=== PATIENT | female | born 1990 | race Hispanic/Latino ===

== ENCOUNTER 2021-03-14 12:49 | Emergency (ER) | payer BC, OTHER ==
[~2021-03-14] VITALS: Ht 154.9 cm; Wt 70.8 kg
[2021-03-14 17:16] VITALS: BP 127/84
[2021-03-14] MEDS ORDERED: PROMETHAZINE HCL 25 MG/ML 1ML AMPULE IM ONE (18:00)
[2021-03-14] MEDS ORDERED: 0.9%NACL 1000ML 1,000 ML IV ONE (18:00)
[2021-03-14 18:21] LABS: BASOPHILS % (AUTO) 0.7 % (0.0-5.0); EOSINOPHILS % (AUTO) 0.1 % (0.0-8.0); HEMATOCRIT 38.2 % (36-48); LYMPHOCYTES % (AUTO) 19.4 % (21.0-51.0); MEAN CORPUSCULAR HEMOGLOBIN 28.6 pg (27.0-33.0); MEAN CORPUSCULAR VOLUME 86.8 fL (79-99); MONOCYTES % (AUTO) 6.2 % (3.0-13.0); NEUTROPHILS % (AUTO) 73.2 % (40.0-77.0); PLATELET COUNT (AUTO) 328 K/uL (130-400); RED CELL DISTRIBUTION WIDTH 13.1 % (11.0-15.5); WHITE BLOOD COUNT (AUTO) 10.4 K/uL (4.8-10.8)
[2021-03-14 18:40] LABS: CREATININE 0.7 mg/dL (0.5-1.5); POTASSIUM 3.7 mmol/L (3.5-5.1)
[2021-03-14 18:43] VITALS: BP 111/65
[2021-03-14 18:44] VITALS: BP_SYST 107; BP_SYST 114; BP_DIAS 65; BP_DIAS 66
[2021-03-14 19:06] LABS: ALBUMIN 4.3 g/dL (3.5-5.0); BILIRUBIN,TOTAL 0.5 mg/dL (0.2-1.0); TOTAL PROTEIN, SERUM 8.5 g/dL (6.0-8.3)
[2021-03-14 19:20] LABS: APPEARANCE,URINE Clear (CLEAR); BILIRUBIN,URINE Negative (NEGATIVE); COLOR,URINE Yellow (YELLOW); GLUCOSE, URINE (UA) Negative (NEGATIVE); KETONES,URINE 15 mg/dL (NEGATIVE); LEUKOCYTE ESTERASE ,URINE Trace (NEGATIVE); NITRATE,URINE Negative (NEGATIVE); OCCULT BLOOD,URINE Negative (NEGATIVE); PH,URINE 6.5 (5.0-8.0); PROTEIN,URINE Negative (NEGATIVE); UROBILINOGEN,URINE 0.2 mg/dL (0.2-1.0)
[2021-03-14 19:41] LABS: BACTERIA,URINE Rare /HPF (None Seen); RBC,URINE None Seen /HPF (0-1); SQUAMOUS EPITHELIAL CELL,UR 0-2 /HPF (0-2)
[2021-03-14 20:29] VITALS: BP 109/67
[2021-03-14] MEDS ORDERED: CEFTRIAXONE 1G VIAL IVP SCH (20:30)
[2021-03-14] MEDS ORDERED: CEPH500B PO (20:47)
[2021-03-14] MEDS ORDERED: PHEN12S PR (20:47)
== END 2021-03-14 21:17 | disposition home or self-care (01) ==
LOC: EDH 12:49
DX: O23.41 Unspecified infection of urinary tract in pregnancy, first trimester (principal); O21.0 Mild hyperemesis gravidarum; Z88.0 Allergy status to penicillin; Z91.040 Latex allergy status; Z98.890 Other specified postprocedural states; Z3A.08 8 weeks gestation of pregnancy
CPT/HCPCS: 36415; 80053; 81001; 84702; 85025; 96361; 96372; 96374; 99284; J0696; J2550

== ENCOUNTER 2021-04-06 15:28 | Emergency (ER) | payer BC ==
[~2021-04-06] VITALS: Ht 157.5 cm; Wt 68.9 kg
[~2021-04-06 15:28] MED LIST: CEPH500B PO; PHEN12S PR
[2021-04-06 16:33] VITALS: BP 121/74
[2021-04-06 17:02] LABS: BASOPHILS % (AUTO) 0.4 % (0.0-5.0); EOSINOPHILS % (AUTO) 0.2 % (0.0-8.0); HEMATOCRIT 34.3 % (36-48); LYMPHOCYTES % (AUTO) 20.7 % (21.0-51.0); MEAN CORPUSCULAR HEMOGLOBIN 28.6 pg (27.0-33.0); MEAN CORPUSCULAR HGB CONC 34.1 g/dL (32.0-36.0); MEAN CORPUSCULAR VOLUME 83.9 fL (79-99); MONOCYTES % (AUTO) 6.8 % (3.0-13.0); NEUTROPHILS % (AUTO) 71.5 % (40.0-77.0); PLATELET COUNT (AUTO) 299 K/uL (130-400); RED BLOOD CELL COUNT(AUTO) 4.09 MIL/uL (4.00-5.50); RED CELL DISTRIBUTION WIDTH 13.2 % (11.0-15.5); WHITE BLOOD COUNT (AUTO) 9.5 K/uL (4.8-10.8)
[2021-04-06 18:21] LABS: APPEARANCE,URINE Clear (CLEAR); BILIRUBIN,URINE Negative (NEGATIVE); COLOR,URINE Yellow (YELLOW); GLUCOSE, URINE (UA) Negative (NEGATIVE); KETONES,URINE Trace mg/dL (NEGATIVE); LEUKOCYTE ESTERASE ,URINE Trace (NEGATIVE); NITRATE,URINE Negative (NEGATIVE); OCCULT BLOOD,URINE Negative (NEGATIVE); PH,URINE 6.5 (5.0-8.0); PROTEIN,URINE Negative (NEGATIVE)
[2021-04-06 18:30] LABS: BACTERIA,URINE Few /HPF (None Seen); RBC,URINE 0-1 /HPF (0-1)
[2021-04-06 18:31] LABS: MUCUS,URINE Rare LPF (None Seen); SQUAMOUS EPITHELIAL CELL,UR Few /HPF (0-2)
[2021-04-06 18:37] VITALS: BP 103/68
== END 2021-04-06 19:44 | disposition home or self-care (01) ==
LOC: EDH 15:28
DX: O20.0 Threatened abortion (principal); O20.8 Other hemorrhage in early pregnancy; Z88.0 Allergy status to penicillin; Z79.899 Other long term (current) drug therapy; Z3A.11 11 weeks gestation of pregnancy
CPT/HCPCS: 36415; 76801; 81001; 84702; 85025; 86900; 86901

== ENCOUNTER 2023-02-12 21:19 | Emergency (ER) | payer BC ==
[~2023-02-12] VITALS: Ht 154.9 cm; Wt 68.0 kg
[2023-02-12 21:24] VITALS: BP 135/81
[2023-02-12] MEDS ORDERED: ONDANSETRON ODT 4MG TAB SL ONE (22:00)
[2023-02-12] MEDS ORDERED: ACETAMINOPHEN 500 MG TABLET PO ONE (22:00)
[2023-02-12 22:06] LABS: APPEARANCE,URINE TURBID (CLEAR); BILIRUBIN,URINE NEGATIVE (NEGATIVE); COLOR,URINE YELLOW (YELLOW); GLUCOSE, URINE (UA) NEGATIVE (NEGATIVE); KETONES,URINE 100 mg/dL (NEGATIVE); LEUKOCYTE ESTERASE ,URINE 500 Leu/uL (NEGATIVE); NITRATE,URINE 2+ (NEGATIVE); OCCULT BLOOD,URINE SMALL (NEGATIVE); PH,URINE 6.5 (5.0-8.0); PROTEIN,URINE 100 mg/dL (NEGATIVE); UROBILINOGEN,URINE 0.2 mg/dL (0.2-1.0)
[2023-02-12 22:09] LABS: HCG,QUALITATIVE URINE NEGATIVE (NEGATIVE)
[2023-02-12 22:11] LABS: BACTERIA,URINE RARE /HPF (None Seen); MUCUS,URINE RARE LPF (None Seen); SQUAMOUS EPITHELIAL CELL,UR MOD /HPF (0-2); WBC,URINE 51-100 /HPF (0-1); YEAST,URINE BUDDING FEW /HPF (None Seen)
[2023-02-12] MEDS ORDERED: SULF1TAB42 PO (22:13)
== END 2023-02-12 22:41 | disposition home or self-care (01) ==
LOC: EDH 21:19
DX: N39.0 Urinary tract infection, site not specified (principal); Z88.0 Allergy status to penicillin; Z88.1 Allergy status to other antibiotic agents; Z20.822 Contact with and (suspected) exposure to COVID-19
CPT/HCPCS: 99283; 87635; 87077; 87088; 87186; 87804 ×2; 81001; 81025; C9803

== ENCOUNTER 2024-10-10 00:32 | Emergency (ER) | payer BC ==
[~2024-10-10] VITALS: Ht 154.9 cm; Wt 77.6 kg
[~2024-10-10 00:32] MED LIST changes: +SULF1TAB42 PO
--- NOTE | 2024-10-10 01:35 | ERN ---
ED Note History of Present Illness Stated Complaint: C/O PAIN TO LEFT HIP AND BACK AFTER FALL IN SHOWER Chief Complaint: Mechanical Fall Time Seen by MD: 00:34 Time Seen by Midlevel: 00:34 Dictation: The patient is a 33-year-old female with a history of cholecystectomy who presents to the emergency department with lower back pain more on the left side after a slip and fall while in the shower around 12:00 p.m. on 10/08/2024. Patient denies any head trauma. Denies any neck pain upper back pain chest pain or abdominal pain, extremity pain. Denies any urinary or fecal incontinence. Denies any nausea or vomiting, denies any use of blood thinners. Allergies: Coded Allergies: Penicillins (Unverified Allergy, Unknown, 03/14/21) clindamycin (Unverified Allergy, Unknown, 02/12/23) latex (Unverified Allergy, Unknown, 03/14/21) Home Meds Active Scripts Sulfamethoxazole/Trimethoprim (Bactrim Ds Tablet) 1 Each Tablet, 1 TAB PO BID for 7 Days, #14 TAB 0 Refills Prov:VIKKI FOSTER NP 02/12/23 Cephalexin Monohydrate (Keflex) 500 Mg Cap, 500 MG PO TID, #21 CAP Prov:SHARMAINE BADILLO 03/14/21 Promethazine HCl (Phenergan Supp) 12.5 Mg Supp, 25 MG DE QID, #20 SUPP Prov:SHARMAINE BADILLO 03/14/21 Past Medical History Past Medical History: No Pertinent History Additional Past Medical Hx: PCOS, BREAST CYST Surgical History: Cholecystectomy Surgical History Other: BREAST CYST Family History: Negative Social History: Negative, Lives with family LMP: Sep 18, 2024 : 2 Para: 0 Aborts: 1 RN Note Reviewed/Agreed w/PFSH: Yes Review of System Dictation Constitutional: Negative for fever,chills, and weight loss Eyes: Negative for injury, pain,redness, and discharge ENT: Negative for injury,pain or swelling Cardiovascular: Negative for chest pain, palpitations, and edema Respiratory: Negative for shortness of breath, cough, and wheezing, Abdomen/GI: Negative for abdominal pain, nausea, vomiting, diarrhea, and constipation Back: positive for low back pain : Negative for injury, bleeding and discharge MS/Extremity: Negative for injury and deformity Skin: Negative for rash, and discoloration Neuro: Negative for headache, weakness, numbness, tingling, and seizure Psych: Negative for suicide ideation, homicidal ideation, and hallucinations Initial Vital Sign VS Vital Signs Date Time Temp Pulse Resp B/P (MAP) Pulse Ox O2 Delivery O2 Flow Rate FiO2 10/10/24 00:33 99.3 95 20 124/81 98 Room Air 10/10/24 03:14 0 21 Physical Exam Dictation Vital Signs reviewed General Appearance: Alert, oriented x 3, no acute distress, well developed, nourished. Head and Face: non-traumatic. Eyes: PERRL, pink conjunctivas, eyelid no trauma, anterior chamber with arcus senilis. Ears: Pinnas intact and no signs of trauma or erythema ear canals clear and no discharge TM no erythema Nose: No discharge, no bleeding. Oropharynx: Mouth normal, tongue pink. pharynx clear,no erythema, tonsils no exudates, no abscesses noted, mucous membrane moist Neck: Supple, non-tender, no thyromegaly, no masses, no JVD, no bruits Breast:Deferred Chest:No tenderness, no crepitus, no paradoxical movement, no retractions Lungs:Clear, well-ventilated, symmetric, no rales, no wheezing, no rhonchi, no stridor, good breath sounds bilaterally Heart: Regular rate, regular rhythm, no murmur, no gallops Vascular: no peripheral edema dorsalis pedis 2+, cap refill to lower extremities less than 2 seconds Abdomen: Soft, positive bowel sounds, nondistended, no guarding, nontender, no rebound, no masses no hepatomegaly, no splenomegaly, no Mares's sign, no hernias. Rectal: Deferred Genital: Deferred Neurological: Normal speech, motor function intact, sensory function intact Musculoskeletal: Neck nontender, full range of motion, back nontender, full range of motion, Extremities: nontender, full range of motion , ambulatory Skin: Color pink, dry, no turgor, no rash, no lacerations, no abrasions, no contusions. Lymphatic: Deferred Results (Laboratory/Radiology) Laboratory/Radiology Laboratory Tests Test 10/10/24 02:39 Urine HCG, Qualitative NEGATIVE (NEGATIVE) Labs Reviewed?: Yes ED Course ED Course Orders Procedure Category Date Status Time ,Urine Test LAB 10/10/24 Complete 00:50 Lumbar Spine 2-3vws RAD 10/10/24 Taken 00:51 Orphenadrine Citrate PHA 10/10/24 Complete (Norflex) 01:00 Ketorolac 60mg/2ml PHA 10/10/24 Complete (Toradol 60mg/2ml) 01:00 Current Medications Medications (Trade) Dose Ordered Sig/Austen Route PRN Reason Start Time Stop Time Status Last Admin Dose Admin Ketorolac Tromethamine (toRADol 60MG/ 2ML) 60 mg ONCE ONCE IM 10/10/24 01:00 10/10/24 01:01 DC 10/10/24 02:53 Orphenadrine Citrate (Norflex) 60 mg ONCE ONCE IM 10/10/24 01:00 10/10/24 01:01 DC 10/10/24 02:53 Vital Signs Date Time Temp Pulse Resp B/P (MAP) Pulse Ox O2 Delivery O2 Flow Rate FiO2 10/10/24 03:14 98.1 82 16 118/78 99 Room Air* 0 21 10/10/24 00:33 99.3 95 20 124/81 98 Room Air Medical Decision Making MDM The patient is a 33-year-old female with a history of cholecystectomy who presents to the emergency department with lower back pain more on the left side after a slip and fall while in the shower around 12:00 p.m. on 10/08/2024. Patient denies any head trauma. Denies any neck pain upper back pain chest pain or abdominal pain, extremity pain. Denies any urinary or fecal incontinence. Denies any nausea or vomiting, denies any use of blood thinners. Xray showed no fractures. Patient in no acute distress, ambulatory, nontoxic appearance. Instructed to follow up with PCP. Differential diagnosis: Lumbar fracture, back contusion, back strain Need for hospitalization: Patient does not meet criteria for hospitalization. There are no social concerns with this patient. DX & DISP Disposition: Discharge Departure Impression: Primary Impression: Low back strain Additional Impression: Fall Condition: Stable Scripts Cyclobenzaprine HCl (Flexeril) 10 Mg Tab 10 MG PO TID for muscle sstiffness, #14 TAB 0 Refills Prov: TI SUE CIVIL ENGINEERING MANAGER 10/10/24 Ibuprofen (Ibuprofen) 600 Mg Tablet 600 MG PO Q6H PRN for PAIN, #10 TAB Prov: SUETI WEN 10/10/24 Additional Instructions: FOLLOW-UP WITH PRIMARY CARE PROVIDER IN 1 TO 2 DAYS. TAKE MEDICATIONS DIRECTED HERE IN THE EMERGENCY ROOM. OKAY TO CONTINUE HOME MEDICATIONS UNLESS OTHERWISE DISCUSSED DURING YOUR VISIT IN THE EMERGENCY ROOM TODAY. RETURN TO YOUR NEAREST EMERGENCY ROOM IF SYMPTOMS WORSEN OR IF THERE IS NO IMPROVEMENT. CALL 911 IF YOU NEED IMMEDIATE ASSISTANCE. TAKE TYLENOL OR MOTRIN [id number] NEEDED AND IF NO CONTRAINDICATIONS ARE PRESENT. INCREASE ORAL HYDRATION. A WOUND CULTURE OR URINE CULTURE WAS ORDERED HERE IN THE EMERGE [facility] ROOM DEPARTMENT PLEASE FOLLOW-UP WITH PRIMARY CARE PROVIDER AND ADVISE THEM TO GET REPEAT PORTS FROM OUR FACILITY. IF YOU HAD ANY DELANO WRAP/SPLINTS THAT WERE APPLIED HERE, PLEASE DO NOT REMOVE THEM UNTIL YOU SEE YOUR PRIMARY CARE OR SPECIALTY. Referrals: MITZI DEJESUS DO (PCP) Time of Disposition: 03:39 I have reviewed the case, and I agree with, Diagnosis and Plan SUE,TI WEN Oct 10, 2024 01:34
[2024-10-10] MEDS: ketOROlac 60 MG VIAL (30MG/ML) IM ONE (02:53)
[2024-10-10] MEDS: ORPHENADRINE 60MG/2ML IM ONE (02:53)
[2024-10-10] MEDS ORDERED: IBUP-2070 PO (03:41)
[2024-10-10] MEDS ORDERED: CYCL10TA16 PO (03:41)
[2024-10-10 04:29] VITALS: BP 122/72; PULSE 76; RESP 16; TEMP 98.1; O2SAT 99
--- NOTE | 2024-10-10 08:51 | HMCIMG ---
EXAM: LUMBAR SPINE 2-3VWS REASON: fall, pain. COMPARISON: None. TECHNIQUE: 3 views of the lumbar spine were obtained. FINDINGS: There is normal appearance of the lumbar vertebral bodies. Disc interspace heights are preserved. Alignment is normal. There are no visible fractures. Soft tissues appear unremarkable. IMPRESSION: 1. Normal lumbar spine.
== END 2024-10-10 04:31 | disposition home or self-care (01) ==
LOC: EDH 00:32
DX: S39.012A Strain of muscle, fascia and tendon of lower back, initial encounter (principal); Z88.0 Allergy status to penicillin; Z88.1 Allergy status to other antibiotic agents; Z90.49 Acquired absence of other specified parts of digestive tract; W18.2XXA Fall in (into) shower or empty bathtub, initial encounter; Y93.E1 Activity, personal bathing and showering; Y92.89 Other specified places as the place of occurrence of the external cause; Y99.8 Other external cause status
CPT/HCPCS: 99284; 81025; 72100; 96372 ×2; J1885; J2360

== ENCOUNTER 2025-07-04 08:45 | Emergency (ER) | payer BC ==
[~2025-07-04] VITALS: Ht 154.9 cm; Wt 65.8 kg
[~2025-07-04 08:45] MED LIST changes: +CYCL10TA16 PO; +IBUP-1492 PO
[2025-07-04] MEDS: LACTATED RINGERS 1000ML 1,000 ML IV ONE (09:19)
[2025-07-04 09:22] LABS: IMMATURE GRANULOCYTE ABSOLUTE 0.04 K/uL (0-1); NUCLEATED RED BLOOD CELLS 0.0 % (0.0-0.19); PLATELET COUNT (AUTO) 366 K/uL (130-400); RED BLOOD CELL COUNT(AUTO) 4.84 MIL/uL (4.00-5.50); RED CELL DISTRIBUTION WIDTH 16.2 % (11.0-15.5); WHITE BLOOD COUNT (AUTO) 6.3 K/uL (4.8-10.8)
[2025-07-04 09:31] LABS: CREATININE 0.7 mg/dL (0.5-1.0); GLOMERULAR FILTR. RATE CALC 116.0 mL/min (>90); GLUCOSE,RANDOM 102.0 mg/dL (70-105); SODIUM SERUM 141.0 mmol/L (136-145); UREA NITROGEN, BLOOD 9.0 mg/dL (7-18)
[2025-07-04 09:36] LABS: ASPARTATE AMINOTRANSFERASE 30.0 U/L (10-37); TOTAL PROTEIN, SERUM 8.0 g/dL (6.0-8.3)
--- NOTE | 2025-07-04 09:40 | ERN ---
General Chief Complaint: Abdominal Pain Stated Complaint: ABDOMINAL PAIN Time Seen by MD: 10:03 History of Present Illness Initial Comments She is 34-year-old female with a past medical history of cholecystectomy complicated with pancreatitis presented today with a chief complaint of abdominal pain for 3 days, vomiting for 3 days, diarrhea for 2 days. The abdominal pain was more concentrated in the upper abdomen and she said she had 10-15 episodes of diarrhea in a day which stopped since yesterday. She said she had watery diarrhea without any gross blood. He also noted fever 101 F yesterday morning. She also noted occasional chills. She did not complain of any urinary symptoms, chest pain, shortness of breath, and dizziness. Allergies: Coded Allergies: Penicillins (Unverified Allergy, Unknown, 03/14/21) clindamycin (Unverified Allergy, Unknown, 02/12/23) latex (Unverified Allergy, Unknown, 03/14/21) Home Meds Active Scripts Bacillus Coagulans (Probiotic) 10 Billion Cell Capsule., 1 CAP PO BID for 5 Days, #10 CAP 0 Refills Prov:LOYDA YAN MD 07/04/25 Pantoprazole Sodium (Pantoprazole Sodium) 40 Mg Tablet.dr, 1 TAB PO DAILY for 7 Days, #7 TAB 0 Refills Prov:LOYDA YAN MD 07/04/25 Cyclobenzaprine HCl (Flexeril) 10 Mg Tab, 10 MG PO TID for muscle sstiffness, #14 TAB 0 Refills Prov:TI SUE MEDICAL RECEPTIONIST 10/10/24 Ibuprofen (Ibuprofen) 600 Mg Tablet, 600 MG PO Q6H PRN for PAIN, #10 TAB Prov:TI SUE 10/10/24 Sulfamethoxazole/Trimethoprim (Bactrim Ds Tablet) 1 Each Tablet, 1 TAB PO BID for 7 Days, #14 TAB 0 Refills Prov:VIKKI FOSTER NP 02/12/23 Cephalexin Monohydrate (Keflex) 500 Mg Cap, 500 MG PO TID, #21 CAP Prov:SHARMAINE BADILLO 03/14/21 Promethazine HCl (Phenergan Supp) 12.5 Mg Supp, 25 MG GA QID, #20 SUPP Prov:SHARMAINE BADILLO 03/14/21 Past Medical History Past Medical History: No Pertinent History Medical History Other: PCOS, BREAST CYST Past Surgical History: Cholecystectomy, Other Surgical History Other: BREAST CYST REMOVAL Family History Family History: Negative Social History Social History: Negative, Lives with family Female( History) : 2 Para: 0 Aborts: 1 ROS Dictation CONSTITUTIONAL: Fever, chills, diaphoresis. HEAD/FACE: No signs of trauma. EENT: No eye pain, no blurred vision, no tearing, no double vision, no ear pain, no ear discharge, no nose pain, no nasal congestion, no throat pain, no throat swelling, no mouth pain. RESPIRATORY: No cough, no orthopnea, SOB, no stridor, wheezing. CARDIOVASCULAR: No chest pain, no edema, no palpitations, no syncope. GASTROINTESTINAL/ABDOMINAL: Epigastric abdominal pain, nausea, vomiting, diarrhea. GENITOURINARY: No abnormal discharge, no dysuria, no frequent urination, no hematuria. No complaints of pain in the genitals. MUSCULOSKELETAL: No back pain, no gout, no joint pain, no joint swelling, no muscle pain, no muscle stiffness, no neck pain. INTEGUMENTARY: No change in color, no change in hair/nails, no dryness, no lesion, no lumps, no rash. NEUROLOGICAL/PSYCH: No anxiety, not depressed, no emotional problem, no headache, no numbness, no pre-existing deficit, no history of seizures, no tremors, no weakness. HEMATOLOGIC/LYMPHATIC: Not anemic, no history of blood clots, no apparent bleeding, no bruising, glands not swollen. All Systems Negative, Except as Noted. Physical Exam Physical Exam Dictation GENERAL APPEARANCE: Alert, oriented x3, no acute distress, obese. HEAD AND FACE: Non-traumatic. EYES: PERRL, pink conjunctivas, eyelid no trauma, anterior chamber clear. EARS: Pinnas intact and no signs of trauma or erythema. NOSE: No discharge, no bleeding. OROPHARYNX: Mouth normal, teeth no caries, tongue pink. NECK: Supple, non-tender, no thyromegaly, no masses, no JVD, no bruits. BREAST: Deferred. CHEST: No tenderness, no crepitus, no paradoxical movement, no retractions. LUNGS: Clear, well-ventilated, symmetric, no rales, wheezing, no rhonchi, no stridor, good breath sounds bilaterally. HEART: Regular rate, regular rhythm, no murmur, no gallops. VASCULAR: No peripheral edema. ABDOMEN: positive bowel sounds, epigastric tenderness appreciated without rebound tenderness, no guarding no rigidity. RECTAL: Deferred. GENITAL: Deferred. NEUROLOGICAL: Normal speech, gross motor function intact, gross sensory function intact. MUSCULOSKELETAL: Neck nontender, full range of motion, back nontender, full range of motion. EXTREMITIES: Nontender, full range of motion. SKIN: Color pink, dry, no turgor, no rash, no lacerations, no abrasions, no contusions. LYMPHATICS: Deferred. Results Laboratory and Microbiology Lab and Micro Result Laboratory Tests Test 07/04/25 09:12 White Blood Count 6.3 K/uL (4.8-10.8) Red Blood Count 4.84 MIL/uL (4.00-5.50) Hemoglobin 10.9 g/dL (12.0-16.0) L Hematocrit 34.3 % (36-48) L Mean Corpuscular Volume 70.9 fL (79-99) L Mean Corpuscular Hemoglobin 22.5 pg (27.0-33.0) L Mean Corpuscular Hemoglobin Concent 31.8 g/dL (32.0-36.0) L Red Cell Distribution Width 16.2 % (11.0-15.5) H Platelet Count 366 K/uL (130-400) Mean Platelet Volume 9.9 fL (7.5-10.5) Immature Granulocyte % (Auto) 0.6 % (0-1) Neutrophils (%) (Auto) 67.5 % (40.0-77.0) Lymphocytes (%) (Auto) 18.7 % (21.0-51.0) L Monocytes (%) (Auto) 11.6 % (3.0-13.0) Eosinophils (%) (Auto) 1.1 % (0.0-8.0) Basophils (%) (Auto) 0.5 % (0.0-5.0) Neutrophils # (Auto) 4.3 K/uL (1.8-7.7) Lymphocytes # (Auto) 1.2 K/uL (1.0-4.8) Monocytes # (Auto) 0.7 K/uL (0.1-1.0) Eosinophils # (Auto) 0.07 K/uL (0.00-0.70) Basophils # (Auto) 0.03 K/uL (0.00-0.20) Absolute Immature Granulocyte (auto 0.04 K/uL (0-1) Nucleated Red Blood Cells 0.0 % (0.0-0.19) Sodium Level 141 mmol/L (136-145) Potassium Level 3.1 mmol/L (3.5-5.1) L Chloride Level 102 mmol/L (101-111) Carbon Dioxide Level 27 mmol/L (21-32) Blood Urea Nitrogen 9 mg/dL (7-18) Creatinine 0.7 mg/dL (0.5-1.0) Glomerular Filtration Rate Calc 116 mL/min (>90) Random Glucose 102 mg/dL (70-105) Total Calcium 8.6 mg/dL (8.5-10.1) Magnesium Level 1.90 mg/dL (1.80-2.40) Total Bilirubin 0.5 mg/dL (0.2-1.0) Aspartate Amino Transf (AST/SGOT) 30 U/L (10-37) Alanine Aminotransferase (ALT/SGPT) 60 U/L (12-78) Alkaline Phosphatase 145 U/L (50-136) H Troponin I High Sensitivity < 4 ng/L (4-50) L Total Protein 8.0 g/dL (6.0-8.3) Albumin 3.7 g/dL (3.5-5.0) Lipase 30 U/L (16-77) EKG/XRAY/US/CT/MRI EKG Comment Date: 07/04/2025. Time 9:23 a.m. DST Rate: 84 Rhythm normal sinus GA: [address] ST-ELEVATION OR DEPRESSION. MDM MDM: DIFFERENTIAL DIAGNOSIS: ACUTE GASTROENTERITIS, ACUTE PANCREATITIS, AND OTHER RATIONALE: TESTS CONSIDERED AND ORDERED SECONDARY TO SHARED DECISION MAKING INCLUDE: CBC, CMP, EKG, TROPONIN I, LIPASE PREVIOUS OUTSIDE RECORDS REVIEWED: OLD ER VISITS. RISK OF COMPLICATION AND/OR MORBIDITY OR MORTALITY OF PATIENT MANAGEMENT: NONE MEDICATIONS-PER MEDICATION RECONCILIATION NEED FOR HOSPITALIZATION: PATIENT DOES NOT MEET CRITERIA FOR HOSPITALIZATION. NEED FOR EMERGENCY MAJOR/MINOR SURGERY: NO THERE ARE NO SOCIAL CONCERNS WITH THIS PATIENT. PRESCRIPTION DRUG MANAGEMENT PRESCRIPTIONS WILL INCLUDE SYMPTOMATIC CARE She is 34-year-old female with a past medical history of cholecystectomy complicated with pancreatitis presented today with a chief complaint of abdominal pain for 3 days, vomiting for 3 days, diarrhea for 2 days. Vitals: BP 118/80, pulse 103, temperature 98.2 F, respiratory rate 18, SpO2 98% in room air. Labs remarkable for hemoglobin 10.9, potassium 3.1 She received 1 L of LR bolus, GI cocktail, Protonix and 50 mEq potassium chloride. Stable enough to be discharged with a prescription of Protonix 40 mg daily and probiotics. ED Course Orders Procedure Category Date Status Time Cbc With Differential LAB 07/04/25 In Process 09:07 Comprehensive LAB 07/04/25 Complete Metabolic Panel 09:07 Urinalysis Profile LAB 07/04/25 In Process 09:07 12 Lead Ekg Tracing- EKG 07/04/25 Complete Technical 09:07 Lipase LAB 07/04/25 Complete 09:07 Troponin I High LAB 07/04/25 Complete Sensitivity 09:07 Lactated Ringers PHA 07/04/25 Complete 1000ml (Lactated 09:30 Pantoprazole 40mg Inj PHA 07/04/25 Complete (Protonix 40mg Inj 09:30 ,Urine Test LAB 07/04/25 In Process 09:36 Magnesium LAB 07/04/25 Complete 09:59 Potassium Bicarb/Cit PHA 07/04/25 Complete Ac 25meq (K-Lyte Ta 10:00 Pharmacy PHA 07/04/25 Complete Communication 11:00 Lidocaine Hcl 2% PHA 07/04/25 Complete Viscous (Lidocaine Hcl 11:00 Mag/Alum/Simeth 30ml PHA 07/04/25 Complete (Maalox Plus 30ml) 11:00 Dicyclomine Hcl PHA 07/04/25 Complete (Bentyl 10mg/5ml 11:00 Lidocaine Hcl 2% PHA 07/04/25 Complete Viscous (Lidocaine Hcl 11:00 Compound Po Misc PHA 07/04/25 In Process (Compound Po Misc) 11:00 Current Medications Medications (Trade) Dose Ordered Sig/Austen Route PRN Reason Start Time Stop Time Status Last Admin Dose Admin Al Hydroxide/Mg Hydroxide (MAALox PLUS 30ML) 30 ml ONCE ONCE PO 07/04/25 11:00 07/04/25 11:01 DC 07/04/25 11:57 Dicyclomine HCl (Bentyl 10mg/5ml Syrup) 10 mg ONCE ONCE PO 07/04/25 11:00 07/04/25 11:01 DC 07/04/25 11:57 Lactated Ringer's 1,000 ml @ 0 mls/hr ONCE ONCE IV 07/04/25 09:30 07/04/25 09:31 DC 07/04/25 09:19 Lidocaine HCl (Lidocaine HCl 2% Viscous) 10 ml ONCE ONCE PO 07/04/25 11:00 07/04/25 11:01 DC 07/04/25 11:59 Lidocaine HCl/Al Hydroxide/Mg Hydroxide/ Dicyclomine HCl 20ML OR AD ONCE ONCE PO 07/04/25 11:00 07/04/25 10:52 DC Pantoprazole Sodium (PROTonix 40MG INJ) 40 mg ONCE ONCE IVP 07/04/25 09:30 07/04/25 09:31 DC 07/04/25 09:38 Pharmacy Profile Note (Pharmacy Communication) 1 each ONCE MISC 07/04/25 11:00 07/04/25 10:49 DC Potassium Bicarbonate (K-Lyte Tablet Eff 25 Meq Tablet.eff) 50 meq ONCE ONCE PO 07/04/25 10:00 07/04/25 10:04 DC 07/04/25 10:09 Vital Signs Date Time Temp Pulse Resp B/P (MAP) Pulse Ox O2 Delivery O2 Flow Rate FiO2 07/04/25 08:59 98.1 94 16 125/93 98 Room Air* 0 21 07/04/25 08:52 98.2 103 18 118/80 98 Room Air 0 DX & DISP Disposition: Discharge Departure Impression: Primary Impression: Acute infective gastroenteritis Ruled Out: Subchorionic hemorrhage in first trimester, Low back strain, Hyperemesis gravidarum, Fall, 11 weeks gestation of , Threatened affecting intrauterine , UTI (urinary tract infection), , Urinary tract infection Critical Time: 30 minutes Condition: Stable Scripts Bacillus Coagulans (Probiotic) 10 Billion Cell Capsule. 1 CAP PO BID for 5 Days, #10 CAP 0 Refills Prov: LOYDA YAN MD 07/04/25 Pantoprazole Sodium (Pantoprazole Sodium) 40 Mg Tablet. 1 TAB PO DAILY for 7 Days, #7 TAB 0 Refills Prov: LOYDA YAN MD 07/04/25 Additional Instructions: --Please continue Protonix 40 mg oral daily for 7 days -Please continue capsule probiotics twice a day for 5 days -Please maintain adequate hydration with oral rehydration solution. -Continue soups, rice, bananas, toast, crackers and mashed potatoes. Referrals: MITZI DEJESUS DO (PCP) Time of Disposition: 12:24 ATTESTATION BY PHYSICIAN I have seen and examined the patient. I reviewed the documentation, medical decision making, and treatment plan as noted by the resident above. I agree with the findings and plan of care. Rosio Carroll MD, SUNIL MD Jul 04, 2025 09:40 ROSIO CARROLL MD Jul 04, 2025 12:24
--- NOTE | 2025-07-04 10:37 | EKG ---
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
[2025-07-04] MEDS ORDERED: COMPOUND PO MISCELLANEOUS 1 EACH MISC MISC PRN (11:00)
[2025-07-04] MEDS ORDERED: PHARMACY COMMUNICATION MISC SCH (11:00)
[2025-07-04] MEDS ORDERED: LIDO 2% VISC 30ML+MAG/AL/SIMETH 30ML+DICYCLOMINE 20MG 10ML PO ONE (11:00)
[2025-07-04] MEDS: DICYCLOMINE HCL 10 MG/5 ML ML PO ONE (11:57)
[2025-07-04] MEDS: MAG/ALUM/SIMETH 30 ML UDCUP PO ONE (11:57)
[2025-07-04] MEDS: LIDOCAINE HCL 2% VISCOUS 15 ML UDCUP PO ONE (11:59)
[2025-07-04] MEDS ORDERED: PANT40TA54 PO (12:20)
[2025-07-04] MEDS ORDERED: BACI1CAP6 PO (12:20)
[2025-07-04 12:28] LABS: APPEARANCE,URINE CLEAR (CLEAR); GLUCOSE, URINE (UA) NEGATIVE (NEGATIVE); LEUKOCYTE ESTERASE ,URINE 25 Leu/uL (NEGATIVE); NITRATE,URINE NEGATIVE (NEGATIVE); OCCULT BLOOD,URINE LARGE (NEGATIVE)
[2025-07-04 12:29] LABS: ADD UA MICROSCOPIC YES
[2025-07-04 12:38] LABS: SQUAMOUS EPITHELIAL CELL,UR RARE /HPF (0-2)
[2025-07-04 13:30] VITALS: BP 128/85; PULSE 92; RESP 15; TEMP 98.5; O2SAT 99
== END 2025-07-04 13:26 | disposition home or self-care (01) ==
LOC: EDH 08:45
DX: A09 Infectious gastroenteritis and colitis, unspecified (principal); Z79.899 Other long term (current) drug therapy; Z88.1 Allergy status to other antibiotic agents; Z88.0 Allergy status to penicillin; Z90.49 Acquired absence of other specified parts of digestive tract; Z91.040 Latex allergy status
CPT/HCPCS: 99284; 96374; 96361; 83735; 84484; 80053; 83690; 85025; 87086; 81001; 81025; 36415; 93005; J7120; J2470